=== PATIENT | female | born 1965 | race Hispanic/Latino ===

== ENCOUNTER 2023-10-21 21:07 | Emergency (ER) | payer OTHER ==
[~2023-10-21] VITALS: Ht 157.5 cm; Wt 117.9 kg
[2023-10-22] MEDS: KETOROLAC 30MG VIAL (30MG/ML) IM ONE (01:08)
[2023-10-22 03:32] VITALS: BP 136/62; PULSE 62; RESP 18; O2SAT 99
== END 2023-10-22 03:33 | disposition home or self-care (01) ==
LOC: EDH 21:07
DX: M54.50 Low back pain, unspecified (principal); W10.8XXA Fall (on) (from) other stairs and steps, initial encounter; Y93.01 Activity, walking, marching and hiking; Y92.89 Other specified places as the place of occurrence of the external cause; Y99.8 Other external cause status
CPT/HCPCS: 99285; 72131; 73501; 72128; 96372; J1885